=== PATIENT | male | born 1960 | race Caucasian/White ===

== ENCOUNTER 2017-01-06 10:47 | Inpatient (IN) | payer BC, OTHER ==
[~2017-01-06] VITALS: Ht 172.7 cm; Wt 99.1 kg
[~2017-01-06 10:47] MED LIST: ASPI81TA18; HYDR25TA6; LISI-167; OMEP20CA9 PO
[2017-01-06] MEDS ORDERED: ASPIRIN 81 MG TABLET CHEW ONE (11:20)
[2017-01-06] MEDS ORDERED: NITROGLYCERIN SINGLE TAB 0.4 MG SL ONE (11:20)
[2017-01-06] MEDS ORDERED: MORPHINE SULFATE 4 MG/ML, 1ML ONE ×2 (11:20→16:18)
[2017-01-06] MEDS ORDERED: ASPIRIN 81 MG TABLET CHEW PO ONE (11:30)
[2017-01-06] MEDS ORDERED: SODIUM CHLORIDE FLUSH 10ML SYR IVF ONE (11:30)
[2017-01-06] MEDS ORDERED: LISI1TAB7 PO (11:32)
[2017-01-06] MEDS: NITROGLYCERIN SINGLE TAB 0.4 MG SL PRN ×3 (11:32→11:50)
[2017-01-06] MEDS ORDERED: ONDANSETRON 2MG/ML, 2ML ONE (11:45)
[2017-01-06] MEDS ORDERED: ONDANSETRON 2MG/ML, 2ML IVPush ONE (12:00)
[2017-01-06] MEDS: MORPHINE SULFATE 4 MG/ML, 1ML IVPush PRN ×2 (12:15→16:32)
[2017-01-06 13:01] LABS: BLOOD UREA NITROGEN 16 mg/dL (7-18)
[2017-01-06 13:07] LABS: ASPARTATE AMINO TRANSFERASE 17 U/L (15-37)
[2017-01-06 13:12] LABS: IS PT STATUS REG ER OR PRE ER? YES
[2017-01-06] MEDS ORDERED: NITROGLYCERIN OINT 2%, 1GM TP ONE ×2 (13:51→14:00)
[2017-01-06] MEDS ORDERED: SODIUM CHLORIDE FLUSH 10ML SYR IVF PRN (14:00)
[2017-01-06] MEDS ORDERED: ACETAMINOPHEN 325 MG TABLET PO PRN (16:00)
[2017-01-06] MEDS ORDERED: ENOXAPARIN 40 MG/0.4 ML SQ SCH (16:00)
[2017-01-06] MEDS ORDERED: morphine SULFATE 10 MG/ML, 1ML IVPush PRN (16:00)
[2017-01-06] MEDS ORDERED: ENOXAPARIN 40 MG/0.4 ML ONE (16:18)
[2017-01-06 16:20] LABS: IS PT STATUS REG ER OR PRE ER? NO
[2017-01-06 18:30] VITALS: BP 147/88
[2017-01-06 19:00] VITALS: BP 139/86
[2017-01-06 20:30] VITALS: BP 147/92
[2017-01-06] MEDS ORDERED: ONDANSETRON 2MG/ML, 2ML IVPush PRN (21:00)
[2017-01-06 23:06] LABS: IS PT STATUS REG ER OR PRE ER? NO
[2017-01-07 03:00] VITALS: BP 152/82
[2017-01-07 05:37] LABS: ASPARTATE AMINO TRANSFERASE 20 U/L (15-37); BLOOD UREA NITROGEN 20 mg/dL (7-18)
[2017-01-07] MEDS ORDERED: ASPIRIN 325 MG TABLET EC PO SCH (06:00)
[2017-01-07 06:50] VITALS: BP 146/95
[2017-01-07] MEDS ORDERED: LISINOPRIL 20 MG TABLET PO SCH (09:00)
[2017-01-07] MEDS ORDERED: HYDROCHLOROTHIAZIDE 25 MG TABLET PO SCH (09:00)
[2017-01-07] MEDS ORDERED: NITROGLYCERIN 0.4 MG BOTTLE (25 TABS) SL ONE (09:02)
[2017-01-07] MEDS: NITROGLYCERIN 0.4 MG BOTTLE (25 TABS) SL PRN ×2 (09:07→09:17)
[2017-01-07] MEDS ORDERED: SODIUM CHLORIDE 0.9% 1,000 ML IV SCH (09:51)
[2017-01-07] MEDS ORDERED: EZETIMIBE 10 MG TABLET PO SCH (10:00)
[2017-01-07] MEDS ORDERED: MIDAZOLAM 1 MG/ML, 5ML ONE (11:11)
[2017-01-07] MEDS ORDERED: FENTANYL PF 100 MCG/2ML ONE (11:11)
[2017-01-07] MEDS ORDERED: HEPARIN 1,000 UNITS/ML, 10ML ONE (11:11)
[2017-01-07] MEDS ORDERED: VERAPAMIL 2.5 MG/ML, 2ML ONE (11:11)
[2017-01-07] MEDS ORDERED: BIVALIRUDIN 250 MG ONE (11:11)
[2017-01-07] MEDS ORDERED: LIDOCAINE 2%, 20ML ONE (11:12)
[2017-01-07] MEDS ORDERED: SIMV5TAB5 PO (13:03)
[2017-01-07] MEDS ORDERED: METO25TA35 PO (13:03)
[2017-01-07] MEDS ORDERED: ASPI-650 PO (13:11)
[2017-01-07 14:47] VITALS: BP 123/81
[2017-01-07] MEDS ORDERED: EZET10TA3 PO (15:27)
[2017-01-07] MEDS ORDERED: CARVEDILOL 6.25 MG TABLET PO SCH (18:00)
== END 2017-01-07 16:00 | disposition home or self-care (01) | DRG 287 ==
LOC: ED 11:45 → EDIP 13:54 → 5SO 17:53 → DCLOUNGE 01-07 15:31
PROVIDERS: ADMIT Internal Medicine; ATTEND Internal Medicine
PROC: 4A023N7 Measurement of Cardiac Sampling and Pressure, Left Heart, Percutaneous Approach (ICD-10-PCS; principal; 2017-01-07)
PROC: B2151ZZ Fluoroscopy of Left Heart using Low Osmolar Contrast (ICD-10-PCS; 2017-01-07)
PROC: B2111ZZ Fluoroscopy of Multiple Coronary Arteries using Low Osmolar Contrast (ICD-10-PCS; 2017-01-07)
DX: I25.110 Atherosclerotic heart disease of native coronary artery with unstable angina pectoris (principal); I10 Essential (primary) hypertension; Z91.19 Patient's noncompliance with other medical treatment and regimen; E78.5 Hyperlipidemia, unspecified; K21.9 Gastro-esophageal reflux disease without esophagitis; Z82.49 Family history of ischemic heart disease and other diseases of the circulatory system; Z80.3 Family history of malignant neoplasm of breast; Z87.891 Personal history of nicotine dependence; Z79.82 Long term (current) use of aspirin
CPT/HCPCS: 36415; 71010; 80053; 80061; 83735; 84100; 84443; 84484; 85025; 85379; 93005; 93017; 93306; 93458; 96372; 96374; 96375; 96376; 99156; 99157; C1894; J0583; J1644; J1650; J2250; J2405; J3010; J3490; J2270; J7030; Q9967